=== PATIENT | male | born 1995 | race Asian ===

== ENCOUNTER 2017-03-01 09:12 | Emergency (ER) | payer OTHER ==
[~2017-03-01] VITALS: Ht 177.8 cm; Wt 89.5 kg
[2017-03-01 09:20] VITALS: TEMP 36.9; Ht 177.8 cm; Wt 89.5 kg
[2017-03-01] MEDS ORDERED: KETOROLAC TROMETHAMINE 30 MG/ML VIAL IV STA (09:52)
--- NOTE | 2017-03-01 10:58 | DIAGNOSTIC IMAGING REPORT ---
LUMBAR SPINE 2 OR 3 VIEWS HISTORY: 21 years-old Male acute lower back pain COMPARISON: None available TECHNIQUE: Frontal, lateral and coned-down lateral views of the lumbar spine. FINDINGS: There is mild convex left curvature of the lumbar spine measuring 13 degrees from L1-L4 which may be accentuated by positioning. There are 5 nonrib appearing lumbar type vertebral segments present. No acute fracture or dislocation is identified. Multiple lower thoracic segments demonstrate minimal anterior wedging of less than 20% which is likely physiologic. No significant degenerative changes are otherwise seen. Bone mineralization is within normal limits. Intervertebral disc spaces are well-maintained. Abdominal structures are unremarkable. A cellular device is seen on the lateral view. IMPRESSION: 1. No acute fracture or dislocation of the lumbar spine. 2. No significant degenerative changes. 3. Mild convex left curvature of the lumbar spine of 13 degrees may be accentuated by positioning. The above report was generated using voice recognition software. It may contain grammatical, syntax or spelling errors. Electronically signed by: Rodolfo Ash M.D. 03/01/2017 10:57 AM Dictated Date/Time: 03/01/2017 10:53 AM
[2017-03-01] MEDS ORDERED: PRED50TA PO (11:06)
[2017-03-01 11:29] VITALS: BP 140/73; PULSE 66; O2SAT 97
--- NOTE | 2017-03-01 16:03 | EMERGENCY ROOM VISIT NOTE ---
History Report prepared by Melanieibwillard: Brody Hyman Under the Supervision of: Dr. Shukri Resendez D.O. First contact with patient: 09:39 Chief Complaint: LEG PAIN,LEG INJURY Stated Complaint: LEFT LEG PAIN History of Present Illness The patient is a 21 year old male who presents to the Emergency Room with complaints of worsening left lower back pain beginning four days ago. The patient states that his pain begins in his back, and moves into his left hip down to his left galeas in the back portion of his leg. He states that he has been having some difficulty walking due to the pain. He denies any loss of bowel or bladder continence, numbness, weakness in legs, fevers, or LOC. The patient denies any IV drug use, or recent straining. He denies any prolonged sitting, and states that he has been walking a lot recently. Pain is worsened with movement of the leg and bending at the hips. Source of History: patient Onset: Four days agoo Position: back (left lower) Timing: constant Associated Symptoms: No LOC, No fevers, No weakness, No numbness Note: Additional symptoms: pain radiating into the left hip and leg, difficulty walking. He denies any loss of bowel or bladder continence. Review of Systems See HPI for pertinent positives & negatives. A total of 10 systems reviewed and were otherwise negative. Past Medical & Surgical Medical Problems: (1) No Known Active Medical Problems Family History No pertinent family history stated. Social History Smoking Status: Never Smoker Occupation Status: [employer] student Current/Historical Medications Scheduled Prednisone (Prednisone), 50 MG PO DAILY Allergies Coded Allergies: No Known Allergies (Unverified , 03/01/17) Physical Exam Vital Signs Date Time Temp Pulse Resp B/P (MAP) Pulse Ox O2 Delivery O2 Flow Rate FiO2 03/01/17 11:29 66 16 140/73 97 03/01/17 09:20 36.9 66 18 162/90 96 Room Air Physical Exam GENERAL: Sitting u pin bed, alert, well appearing, well nourished, no distress, non-toxic EYE EXAM: normal conjunctiva. OROPHARYNX: no exudate, no erythema, lips, buccal mucosa, and tongue normal and mucous membranes are moist NECK: supple, no nuchal rigidity, no adenopathy, non-tender LUNGS: Clear to auscultation. Normal chest wall mechanics HEART: no murmurs, S1 normal and S2 normal ABDOMEN: abdomen soft, non-tender, normo-active bowel sounds, no masses, no rebound or guarding. BACK: Back is symmetrical on inspection and there is no deformity. Acute tenderness from the left SI joint through the left gluteus, down the back of the left leg. SKIN: no rashes and no bruising UPPER EXTREMITIES: upper extremities are grossly normal. LOWER EXTREMITIES: Flexion and extension of the hip, knee, ankle and EHL 5/5 bilaterally. Gross sensation intact. Patellar and Achilles reflexes 2/4 bilaterally. DPs 2/4 bilaterally. Able to ambulate. NEURO EXAM: Normal sensorium, cranial nerves II-XII grossly intact, normal speech, no gross weakness of arms, no gross weakness of legs. Medical Decision & Procedures ER Provider Diagnostic Interpretation: Radiology results as stated below per my review and the radiologist's interpretation: LUMBAR SPINE 2 OR 3 VIEWS FINDINGS: There is mild convex left curvature of the lumbar spine measuring 13 degrees from L1-L4 which may be accentuated by positioning. There are 5 nonrib appearing lumbar type vertebral segments present. No acute fracture or dislocation is identified. Multiple lower thoracic segments demonstrate minimal anterior wedging of less than 20% which is likely physiologic. No significant degenerative changes are otherwise seen. Bone mineralization is within normal limits. Intervertebral disc spaces are well-maintained. Abdominal structures are unremarkable. A cellular device is seen on the lateral view. IMPRESSION: 1. No acute fracture or dislocation of the lumbar spine. 2. No significant degenerative changes. 3. Mild convex left curvature of the lumbar spine of 13 degrees may be accentuated by positioning. The above report was generated using voice recognition software. It may contain grammatical, syntax or spelling errors. Electronically signed by: Rodolfo Ash M.D. Medications Administered Medications (Trade) Dose Ordered Sig/Geoff Route Start Time Stop Time Status Last Admin Dose Admin Ketorolac Tromethamine (Toradol Inj) 30 mg NOW STAT IV 03/01/17 09:52 03/01/17 09:54 DC 03/01/17 10:14 30 MG Prednisone (PredniSONE TAB) 60 mg NOW STAT PO 03/01/17 11:03 03/01/17 11:04 DC 03/01/17 11:19 60 MG ED Course ED COURSE: Vital signs were reviewed and showed situational hypertension The patients medical record was reviewed The above diagnostic studies were performed and reviewed. ED treatments and interventions as stated above. 0945: The patient was evaluated in room C4. A complete history and physical examination was performed. 0952: Ordered Toradol Inj 30 mg IV. 1103: Ordered Prednisone Tab 60 mg PO. 1105: Upon reevaluation, the patient is resting comfortably. I discussed my findings with the patient and he understands and agrees with the treatment plan. Based on the patients age, coexisting illnesses, exam and lab findings the decision to treat as an outpatient was made. The patient remained stable while under my care. The patient appeared well at the time of discharge. Medical Decision Differential diagnoses includes but is not limited to lumbar radiculopathy, muscle strain, facture, cauda equina, mass, and disc herniation. Patient is a 21-year-old male with no risk factors that presents the ER for lower back pain radiating through his left gluteus and into his left leg. He has acute reproducible pain on palpation. No IV drug use, fevers, trauma, weakness or numbness in the leg, he is able to urinate and move his bowels without difficulty. No previous back surgeries. On exam he is completely neurovascularly intact. X-rays of spine were unremarkable. IM Toradol and steroids were given. He felt moderately better. He was discharged follow-up with PCP/[facility]. Discussed with Pt concerning signs and symptoms to watch out for. Pt was instructed to follow up with their PCP and discussed with the patient their option to return to the ED at anytime for persistent or worsening symptoms. The appropriate anticipatory guidance and out-patient management, including indications for return to the emergency department, were explained at length to the patient and understood. Medication Reconcilliation Current Medication List: was personally reviewed by me Blood Pressure Screening Patient's blood pressure: Elevated blood pressure Blood pressure disposition: Elevated BP felt to be situational Impression Primary Impression: Sciatic leg pain Scribe Attestation The scribe's documentation has been prepared under my direction and personally reviewed by me in its entirety. I confirm that the note above accurately reflects all work, treatment, procedures, and medical decision making performed by me. Departure Information Dispostion Home / Self-Care Prescriptions Prednisone (PREDNISONE) 50 Mg Tab 50 MG PO DAILY for 5 Days, #5 TAB Prov: Shukri Resendez, DO 03/01/17 Referrals No Doctor, Assigned (PCP) Forms HOME CARE DOCUMENTATION FORM, IMPORTANT VISIT INFORMATION Patient Instructions ED Sciatica, My [facility] Additional Instructions Please follow up with your primary care doctor/[facility] within 24 hours. Any worsening of your symptoms, please return to the ED immediately. This includes any fevers greater than 100.4, worsening pain, numbness or weakness in the legs , and ability to ambulate, inability to urinate or move your bowels or any other concerning signs or symptoms from your standpoint. Please take Motrin or Tylenol as needed for pain.
== END 2017-03-01 11:31 | disposition home or self-care (01) ==
LOC: C.EDB 09:14 → C.EDC 11:31
DX: M54.42 Lumbago with sciatica, left side (principal)

== ENCOUNTER 2017-03-08 10:20 | Emergency (ER) | payer OTHER ==
[~2017-03-08] VITALS: Ht 177.8 cm; Wt 87.9 kg
[2017-03-08 10:26] VITALS: Ht 177.8 cm; Wt 87.9 kg
[2017-03-08] MEDS ORDERED: PRED50TA PO ×2 (11:02→13:28)
[2017-03-08] MEDS ORDERED: ACETAMINOPHEN 500 MG TAB PO STA (11:33)
[2017-03-08] MEDS ORDERED: KETOROLAC TROMETHAMINE 30 MG/ML VIAL IV STA (11:33)
[2017-03-08] MEDS ORDERED: TRAMADOL HCL 50 MG TAB PO STA (11:33)
[2017-03-08] MEDS ORDERED: DEXAMETHASONE SOD INJ 10 MG/ML VIAL IV ONE (11:45)
[2017-03-08] MEDS ORDERED: SODIUM CHLORIDE 0.9% 1000ML 1,000 ML IV SCH (11:45)
--- NOTE | 2017-03-08 12:01 | EMERGENCY ROOM VISIT NOTE ---
History Report prepared by Librado: Emily Thomas Under the Supervision of: Dr. Dylan Shepherd M.D. First contact with patient: 10:50 Chief Complaint: BACK PAIN Stated Complaint: SCIATICA History of Present Illness The patient is a 21 year old male with a past medical history of back pain who presents to the ED with a cc of back pain for the past week and a half. His pain is worse in his left lower back and radiates down his left leg. He describes his pain as "stabbing" and rates it as a 9/10 in severity. The patient was seen in the ED 1 week ago for these symptoms. He was diagnosed with sciatica and discharged home with a prescription for prednisone. He has been taking this medication as prescribed, but states that it is not helping his pain. His pain has been constant. Movement exacerbates his pain, as well as laying on his back. Laying on his stomach is the most comfortable position. Negative fevers, chills, nausea, vomiting, urinary symptoms, penial discharge, incontinence, numbness, tingling, recent weight loss, and recent trauma or injury. He traveled to the from [place] 3 weeks ago and denies any other recent travel. Source of History: patient Onset: 1.5 weeks ago Position: back (lower) Symptom Intensity: 9/10 Quality: stabbing Timing: worsening Modifying Factors (Worsening): movement, other (laying on back) Modifying Factors (Relieving): other (laying on stomach) Associated Symptoms: No fevers, No chills, No nausea, No vomiting, No urinary symptoms, No numbness Note: Negative penial discharge, incontinence, tingling, recent weight loss, and recent trauma or injury. Review of Systems See HPI for pertinent positives and negatives. A total of ten systems were reviewed and were otherwise negative. Past Medical & Surgical Medical Problems: (1) No significant medical problems Family History Patient reports no known family medical history. Social History Smoking Status: Never Smoker Smokeless Tobacco Use: No Alcohol Use: none Drug Use: none Marital Status: single Housing Status: lives with roommate Occupation Status: [employer] student Current/Historical Medications Scheduled Prednisone (Prednisone), 50 MG PO DAILY Prednisone (Prednisone), 50 MG PO DAILY Scheduled PRN Tramadol (Ultram), 50 MG PO Q8H PRN for Pain Allergies Coded Allergies: No Known Allergies (Unverified , 03/08/17) Physical Exam Vital Signs Date Time Temp Pulse Resp B/P (MAP) Pulse Ox O2 Delivery O2 Flow Rate FiO2 03/08/17 14:15 36.6 63 18 131/74 96 03/08/17 13:22 67 18 145/77 97 Room Air 03/08/17 10:26 36.6 79 16 156/103 94 Room Air Physical Exam GENERAL: Awake, alert, well-appearing, NAD HENT: Normocephalic, atraumatic. EYES: Normal conjunctiva. Sclera non-icteric. NECK: Supple. No nuchal rigidity. FROM. RESPIRATORY: CTAB, no rhonchi, wheezing, crackles CARDIAC: RRR, no MRG ABDOMEN: Soft, NTND, BS+ BACK: Reproducible left-sided lower back pain, no fluctuance. MSK: No chest wall TTP, no LE edema. NEURO: GCS 15, CN 2-12 intact, moves all 4s on command. Mildly decreased strength of LLE secondary to pain, no sensory deficit. Positive straight leg raise on the left. SKIN: No rash or jaundice noted. Medical Decision & Procedures ER Provider Diagnostic Interpretation: Radiology results as stated below per my review and radiologist interpretation: LUMBAR SPINE 2 OR 3 VIEWS HISTORY: 21 years-old Male L sided LBP, likely sciatica, repeat visit COMPARISON: Lumbar spine radiographs 03/01/2017 TECHNIQUE: 3 views of the lumbar spine FINDINGS: Approximately 10 degrees convex left curvature of the lumbar spine is seen measured from T12-L4. No acute fracture, dislocation or significant degenerative changes. Minimal anterior wedging of less than 20% seen within several lower thoracic segments, likely physiologic. Bone mineralization is within normal limits. Imaged soft tissues and abdominal structures are unremarkable. IMPRESSION: 1. No acute bony abnormality. 2. Gentle convex left curvature of the lumbar spine redemonstrated. The above report was generated using voice recognition software. It may contain grammatical, syntax or spelling errors. Electronically signed by: Rodolfo Ash M.D. 03/08/2017 12:16 PM Dictated Date/Time: 03/08/2017 12:14 PM Laboratory Results 03/08/17 11:35 Red Blood Count 5.81, Mean Corpuscular Volume 85.0, Mean Corpuscular Hemoglobin 28.7, Mean Corpuscular Hemoglobin Concent 33.8, Mean Platelet Volume 11.1, Neutrophils (%) (Auto) 87.8, Lymphocytes (%) (Auto) 8.7, Monocytes (%) (Auto) 2.4, Eosinophils (%) (Auto) 0.7, Basophils (%) (Auto) 0.1, Neutrophils # (Auto) 11.64, Lymphocytes # (Auto) 1.15, Monocytes # (Auto) 0.32, Eosinophils # (Auto) 0.09, Basophils # (Auto) 0.01 03/08/17 11:35 Test 03/08/17 11:35 White Blood Count 13.25 K/uL (4.8-10.8) Red Blood Count 5.81 M/uL (4.7-6.1) Hemoglobin 16.7 g/dL (14.0-18.0) Hematocrit 49.4 % (42-52) Mean Corpuscular Volume 85.0 fL (80-100) Mean Corpuscular Hemoglobin 28.7 pg (25-34) Mean Corpuscular Hemoglobin Concent 33.8 g/dl (32-36) Platelet Count 286 K/uL (130-400) Mean Platelet Volume 11.1 fL (7.4-10.4) Neutrophils (%) (Auto) 87.8 % Lymphocytes (%) (Auto) 8.7 % Monocytes (%) (Auto) 2.4 % Eosinophils (%) (Auto) 0.7 % Basophils (%) (Auto) 0.1 % Neutrophils # (Auto) 11.64 K/uL (1.4-6.5) Lymphocytes # (Auto) 1.15 K/uL (1.2-3.4) Monocytes # (Auto) 0.32 K/uL (0.11-0.59) Eosinophils # (Auto) 0.09 K/uL (0-0.5) Basophils # (Auto) 0.01 K/uL (0-0.2) RDW Standard Deviation 40.9 fL (36.4-46.3) RDW Coefficient of Variation 13.3 % (11.5-14.5) Immature Granulocyte % (Auto) 0.3 % Immature Granulocyte # (Auto) 0.04 K/uL (0.00-0.02) Anion Gap 9.0 mmol/L (3-11) Est Creatinine Clear Calc Drug Dose 158.0 ml/min Estimated GFR () 147.1 Estimated GFR (Non- 126.9 BUN/Creatinine Ratio 14.4 (10-20) Calcium Level 9.2 mg/dl (8.5-10.1) Laboratory results reviewed by me. Medications Administered Medications (Trade) Dose Ordered Sig/Geoff Route Start Time Stop Time Status Last Admin Dose Admin Sodium Chloride 1,000 ml @ 999 mls/hr Q1H1M IV 03/08/17 11:45 03/08/17 14:28 DC 03/08/17 11:45 999 MLS/HR Dexamethasone Sodium Phosphate (Decadron Inj) 10 mg NOW ONCE IV 03/08/17 11:45 03/08/17 11:46 DC 03/08/17 11:54 10 MG Ketorolac Tromethamine (Toradol Inj) 30 mg NOW STAT IV 03/08/17 11:33 03/08/17 11:36 DC 03/08/17 11:54 30 MG Tramadol HCl (Ultram Tab) 50 mg NOW STAT PO 03/08/17 11:33 03/08/17 11:36 DC 03/08/17 11:55 50 MG Acetaminophen (Tylenol Tab) 1,000 mg NOW STAT PO 03/08/17 11:33 03/08/17 11:36 DC 03/08/17 11:54 1,000 MG ED Course 1059: The patient was evaluated in room C8. A complete history and physical exam was performed. 1133: Tylenol tab 1000 mg PO, Ultram tab 50 mg PO, Toradol 30 mg IV 1145: Decadron 10 mg IV, NSS 1000 ml @ 999 mls/hr IV 1308: I reassessed the patient at this time. He is feeling better and resting comfortably. I discussed the results and treatment plan with the patient. I answered all pertaining questions that he had. He expressed understanding and verbalized agreement. The patient will be discharged home and will follow up with S. Medical Decision Differential diagnosis: Etiologies such as musculoskeletal, disc herniation, fracture, aortic disease, metastatic disease, cord compression, discitis, infection, renal colic, gastrointestinal, acute exacerbation of chronic back pain, sciatica, cauda equina, as well as others were entertained. The patient is a 21 year old male with a past medical history of back pain who presents to the ED with a cc of back pain for the past week and a half. Patient was seen and evaluated at the bedside. Patient's exam was most consistent with sciatica patient did not have any high risk low back pain features as patient denied fever, unexplained weight loss, IV drug abuse, drug use, bowel or bladder incontinence or retention, or saddle anesthesia. Patient does not complain of any urinary symptoms so a UA was not obtained. Patient's pain improved after medical management. I discussed with the patient the need to follow-up with his primary care physician which can then refer him to either physical therapy and or an orthopedist for further management if conservative treatment does not help him. Patient was told to return if he had worsening symptoms include numbness, tingling, weakness, bowel or bladder incontinence, or saddle anesthesia. Patient was given prescriptions for home. Patient agreed with plan of care and patient was safely discharged home. Medication Reconcilliation Current Medication List: was personally reviewed by me Blood Pressure Screening Patient's blood pressure: Elevated blood pressure Blood pressure disposition: Elevated BP felt to be situational Impression Primary Impression: Sciatica Additional Impression: Back pain Scribe Attestation The scribe's documentation has been prepared under my direction and personally reviewed by me in its entirety. I confirm that the note above accurately reflects all work, treatment, procedures, and medical decision making performed by me. Departure Information Dispostion Home / Self-Care Prescriptions Tramadol (Ultram) 50 Mg Tab 50 MG PO Q8H Y for Pain, #10 TAB Prov: Dylan Shepherd M.D. 03/08/17 Prednisone (Prednisone) 50 Mg Tab 50 MG PO DAILY for 5 Days, #5 TAB Prov: Dylan Shepherd M.D. 03/08/17 Referrals No Doctor, Assigned (PCP) [facility] Patient Instructions ED Sciatica, Exercises Back Hip Lift, Exercises Back Hip Rotator Stretch, Exercises Back Side Stretch, Exercises Lower Back Rotation, My [facility] Additional Instructions Please return to the emergency department if you have worsening or recurrent symptoms not amenable to at-home treatment. Please call for a follow-up appointment with her primary care physician. Please take your medications as prescribed. If you have other concerns and/or complaints please feel free to also call your primary care physician's office or return the ED for further evaluation, management, and treatment. Please follow-up with [facility] in order to obtain a further appointment with [facility]. Please also follow up with [facility] in order to obtain physical therapy appointment. Please continue to do back exercises and stretches. Please take 800 mg of ibuprofen every 6 hours for the next 2 days. Please take with food. Please take Tylenol 1000 mg every 6 hours. He may take tramadol for breakthrough pain not amenable to Motrin or Tylenol. Please take her prescriptions as prescribed. Please take prednisone with food as this may cause upset stomach. Please return if you have any numbness or weakness of the lower extremity or if you have any bowel or bladder incontinence or numbness to the groin area. School Instructions Return To School: 1 day Problem Qualifiers Primary Impression: Sciatica Laterality: left Qualified Codes: M54.32 - Sciatica, left side Additional Impression: Back pain Back pain location: low back pain Chronicity: chronic Back pain laterality : left Sciatica presence: with sciatica Sciatica laterality: sciatica of left side Qualified Codes: M54.42 - Lumbago with sciatica, left side; G89.29 - Other chronic pain
[2017-03-08 12:03] LABS: BASO % 0.1 %; BASO ABS # 0.01 K/uL (0-0.2); COMPLETE YES; EOS % 0.7 %; HEMATOCRIT 49.4 % (42-52); IG% 0.3 %; LYMPH % 8.7 %; LYMPH ABS # 1.15 K/uL (1.2-3.4); MEAN CORPUSCULAR HEMOGLOBIN 28.7 pg (25-34); MEAN CORPUSCULAR HGB CONC 33.8 g/dl (32-36); MEAN PLATELET VOLUME 11.1 fL (7.4-10.4); MONO % 2.4 %; NEUT % 87.8 %; PLATELET COUNT 286 K/uL (130-400); RED BLOOD COUNT 5.81 M/uL (4.7-6.1); WHITE BLOOD COUNT 13.25 K/uL (4.8-10.8)
--- NOTE | 2017-03-08 12:18 | DIAGNOSTIC IMAGING REPORT ---
LUMBAR SPINE 2 OR 3 VIEWS HISTORY: 21 years-old Male L sided LBP, likely sciatica, repeat visit COMPARISON: Lumbar spine radiographs 03/01/2017 TECHNIQUE: 3 views of the lumbar spine FINDINGS: Approximately 10 degrees convex left curvature of the lumbar spine is seen measured from T12-L4. No acute fracture, dislocation or significant degenerative changes. Minimal anterior wedging of less than 20% seen within several lower thoracic segments, likely physiologic. Bone mineralization is within normal limits. Imaged soft tissues and abdominal structures are unremarkable. IMPRESSION: 1. No acute bony abnormality. 2. Gentle convex left curvature of the lumbar spine redemonstrated. The above report was generated using voice recognition software. It may contain grammatical, syntax or spelling errors. Electronically signed by: Rodolfo Ash M.D. 03/08/2017 12:16 PM Dictated Date/Time: 03/08/2017 12:14 PM
[2017-03-08 12:28] LABS: BUN/CREATININE RATIO 14.4 (10-20); CALCIUM 9.2 mg/dl (8.5-10.1); CREATININE 0.84 mg/dl (0.60-1.40); POTASSIUM 3.9 mmol/L (3.5-5.1)
[2017-03-08] MEDS ORDERED: TRAM-10 PO (13:28)
[2017-03-08 14:15] VITALS: BP 131/74; PULSE 63; TEMP 36.6; O2SAT 96
== END 2017-03-08 14:18 | disposition home or self-care (01) ==
LOC: C.EDB 10:21 → C.EDC 14:18
DX: M53.3 Sacrococcygeal disorders, not elsewhere classified (principal); M54.9 Dorsalgia, unspecified

== ENCOUNTER 2017-03-15 10:44 | Emergency (ER) | payer OTHER ==
[~2017-03-15] VITALS: Ht 177.8 cm; Wt 88.0 kg
[~2017-03-15 10:44] MED LIST: PRED50TA PO; TRAM-10 PO
[2017-03-15 10:50] VITALS: TEMP 36.9; Ht 177.8 cm; Wt 88.0 kg
[2017-03-15] MEDS ORDERED: TRAM-10 PO (11:14)
[2017-03-15 11:34] VITALS: BP 148/99; PULSE 85; O2SAT 97
--- NOTE | 2017-03-15 20:43 | EMERGENCY ROOM VISIT NOTE ---
History First contact with patient: 11:06 Chief Complaint: BACK PAIN Stated Complaint: SCIATICA History of Present Illness The patient is a 21 year old male who presents to the Emergency Room with complaints of persistent lower back pain radiating down the left lower extremity to the calf. The patient reports that this is his third visit for this pain. The patient reports that his pain did improve since his last visit. Upon awakening this morning, he reported that the pain was back. The patient denies any acute injuries over the weekend. He denies any left lower extremity weakness, foot drop, saddle anesthesias or bladder/bowel difficulties/ incontinence. The patient denies any prior history of lower back injuries or sciatica. He reports that the Ultram he took the last time did help with his pain. He currently rates his discomfort an 8 out of 10. Review of Systems 10 system review was performed and was negative except for pertinent positives and negatives as indicated in history of present illness Past Medical/Surgical History Medical Problems: (1) No significant medical problems Family History Patient reports no known family medical history. Social History Smoking Status: Current Every Day Smoker Alcohol Use: none Drug Use: none Marital Status: single Housing Status: lives with roommate Occupation Status: [employer] student Current/Historical Medications Scheduled Prednisone (Prednisone), 50 MG PO DAILY Scheduled PRN Tramadol (Ultram), 50 MG PO Q8H PRN for Pain Tramadol (Ultram), 1-2 TAB PO Q4H PRN for Pain Physical Exam Vital Signs Date Time Temp Pulse Resp B/P (MAP) Pulse Ox O2 Delivery O2 Flow Rate FiO2 03/15/17 11:34 85 148/99 97 03/15/17 10:50 36.9 94 16 143/96 93 Room Air Physical Exam CONSTITUTIONAL: Healthy and well nourished. Alert and oriented X 3 with positive affect. Patient does not appear in any acute distress. HEENT: Normocephalic, atraumatic. Pupils equal, round and reactive. NECK: Full active range of motion without discomfort. MUSCULOSKELETAL: Examination shows generalized tenderness to palpation through the left lower lumbar paraspinous muscle, SI joint and sciatic notch. Negative logroll. Positive sitting straight leg raise, reproducing pain into the left calf. No popliteal masses, and pedal pulses are intact. Ankle plantar/ dorsiflexion strength is 5 out of 5 and symmetric bilaterally. INTEGUMENTARY: No rash or other significant dermatologic conditions noted. NEUROLOGIC: No focal neurologic deficits noted. Lower extremity deep tendon reflexes are 2+ and symmetric bilaterally. Medical Decision & Procedures ED Course Patient history and physical exam were performed. Nurse's notes were reviewed. Vital signs were reviewed, showing an elevated blood pressure of 143/96. The patient does not appear in any acute distress. I did review his prior to ED visit notes. On his last ED evaluation, he did have x-rays and laboratory studies performed that were normal. Review of his discharge instructions instructed him to contact [facility] for [facility] referral. The patient reports that he did not contact [facility] because his pain was improving. At this point, the patient was provided direct contact information for [facility]. He was instructed to contact them to see if they accept his insurance without a referral. If they do require a referral, the patient was instructed to follow- up with [facility] for further management and referral as warranted. The patient was advised that the emergency department does not provide ongoing chronic pain management, and that further treatment including possible physical therapy and MRI studies, would need to be ordered by his primary care provider. The patient was given specific symptoms to watch for that would warrant emergency Department reevaluation, symptoms consistent with cauda equina syndrome and other emergent compressive neuropathy. The patient was encouraged to alternate ibuprofen and Tylenol for baseline pain relief. He was provided another prescription for tramadol as needed for breakthrough pain. The [place] Prescription Drug Monitoring Program was reviewed with no prior controlled medication history of concern. The patient voiced understanding of all discharge instructions, was happy with plan of care, refused any analgesics while in the emergency department, and rated his pain a 5 out of 10 at the conclusion of my exam. The patient's blood pressure was also elevated in the emergency department. He was instructed to follow-up with [facility] for separate recheck of his blood pressure if he goes directly to [facility]. Medical Decision As indicated in the previous section, the patient does not have any clinical exam findings to suggest an emergent compressive neuropathy. Given history, I also do not suspect a spinal abscess or hematoma. His prior laboratory studies do not show any leukocytosis or other concerning laboratory findings. The patient is afebrile. [place] Drug Monitoring Program Search Results: patient reviewed within database, no issues identified Medication Reconcilliation Current Medication List: was personally reviewed by me Blood Pressure Screening Patient's blood pressure: Elevated blood pressure Blood pressure disposition: Referred to PCP Impression Primary Impression: Back pain with left-sided sciatica Additional Impression: Elevated blood pressure reading Departure Information Dispostion Home / Self-Care Prescriptions Tramadol (Ultram) 50 Mg Tab 1-2 TAB PO Q4H Y for Pain, #30 TAB For Initial Treatment Prov: Germán Mills PA 03/15/17 Referrals Javier Tompkins M.D. [facility] (PCP) Forms HOME CARE DOCUMENTATION FORM, IMPORTANT VISIT INFORMATION Patient Instructions My [facility], ED Sciatica Additional Instructions Call [facility] (Dr. Tompkins) to see if they accept your insurance without a referral. If they require a referral, follow-up with [facility] for this referral or for further back pain management. Ibuprofen 800 mg and/or Tylenol 1000 mg every 8 hours. You may also alternate these medications for more effective pain relief: Ibuprofen --4 HRS--> Tylenol --4 HRS--> ibuprofen --4 HRS--> Tylenol .... Ultram if needed for worse pain. Problem Qualifiers
== END 2017-03-15 11:36 | disposition home or self-care (01) ==
LOC: C.EDB 10:45 → C.EDD 11:36
DX: M54.42 Lumbago with sciatica, left side (principal); R03.0 Elevated blood-pressure reading, without diagnosis of hypertension; F17.210 Nicotine dependence, cigarettes, uncomplicated

== ENCOUNTER 2017-04-25 10:39 | Observation (INO) | payer OTHER ==
[~2017-04-25] VITALS: Ht 175.3 cm; Wt 86.5 kg
[2017-04-25] MEDS ORDERED: KETOROLAC TROMETHAMINE 30 MG/ML VIAL IV STA (11:16)
[2017-04-25] MEDS ORDERED: SODIUM CHLORIDE 0.9% 1000ML 1,000 ML IV ONE (11:30)
[2017-04-25] MEDS ORDERED: DEXAMETHASONE SOD INJ 10 MG/ML VIAL IV ONE (11:30)
[2017-04-25] MEDS ORDERED: MoRPHine SULFATE 4 MG/ML 1 ML CARP\\VIAL IV ONE ×2 (11:30→14:45)
[2017-04-25] MEDS ORDERED: LORAZEPAM 2 MG/ML 1 ML VIAL IV ONE (11:30)
[2017-04-25 11:45] LABS: BASO % 0.2 %; BASO ABS # 0.03 K/uL (0-0.2); COMPLETE YES; EOS % 0.9 %; HEMATOCRIT 44.6 % (42-52); IG% 0.3 %; LYMPH % 10.5 %; LYMPH ABS # 1.47 K/uL (1.2-3.4); MEAN CELL VOLUME 83.4 fL (80-100); MEAN CORPUSCULAR HEMOGLOBIN 29.2 pg (25-34); MEAN PLATELET VOLUME 10.9 fL (7.4-10.4); MONO % 4.6 %; NEUT % 83.5 %; PLATELET COUNT 266 K/uL (130-400); RED BLOOD COUNT 5.35 M/uL (4.7-6.1)
[2017-04-25 11:55] LABS: ALT/SGPT 31 U/L (12-78); AST/SGOT 18 U/L (15-37); BLOOD UREA NITROGEN 12 mg/dl (7-18); BUN/CREATININE RATIO 17.1 (10-20); CARBON DIOXIDE 23 mmol/L (21-32); CHLORIDE 104 mmol/L (98-107); CREATININE 0.71 mg/dl (0.60-1.40); GLUCOSE 98 mg/dl (70-99); POTASSIUM 3.5 mmol/L (3.5-5.1); SODIUM 137 mmol/L (136-145)
[2017-04-25 11:57] LABS: ALB/GLOB RATIO 1.3 (0.9-2); ALKALINE PHOSPHATASE 60 U/L (45-117)
--- NOTE | 2017-04-25 13:45 | DIAGNOSTIC IMAGING REPORT ---
MRI OF THE LUMBAR SPINE WITHOUT CONTRAST CLINICAL HISTORY: Low back pain with left sciatica. COMPARISON STUDY: No previous studies for comparison. TECHNIQUE: Utilizing a 1.5 Ananya magnet and dedicated coil, multiplanar, multiecho imaging of the lumbar spine was performed without IV contrast. FINDINGS: For purposes of numbering on this exam, the L5-S1 disc space is assigned to axial image 24 of 27. Alignment of the lumbar spine is anatomic. Vertebral body heights are maintained. The conus terminates at the T12-L1 level. Paravertebral soft tissues are unremarkable. L1-2: The central canal and neural foramen are patent. L2-3: The central canal and neural foramen are patent. L3-4: The central canal and neural foramen are patent. L4-5: There is a large left paracentral disc extrusion that results in marked narrowing of the central canal and left lateral recess. The neural foramen are patent. L5-S1: There is a moderate-sized central/left paracentral disc protrusion that results in mild narrowing of the central canal and moderate narrowing of the left lateral recess. Neural foramen are patent. IMPRESSION: 1. Large left paracentral disc extrusion at L4-L5 that results in marked narrowing of the central canal and left lateral recess. Discussed with [place] at time of dictation. 2. Moderate sized central/left paracentral disc protrusion at L5-S1 that results in moderate narrowing of the left lateral recess and mild narrowing of the central canal. Electronically signed by: Shashank Lyons M.D. 04/25/2017 1:44 PM Dictated Date/Time: 04/25/2017 1:15 PM
--- NOTE | 2017-04-25 15:50 | History and Physical ---
History & Physical Date & Time of Service: Apr 25, 2017 at 15:46 Chief Complaint: Back Pain Primary Care Physician: [facility] History of Present Illness Source: patient This is a 21 yo M without significant past medical history who reports to the ER with acute worsening of left lower back pain with radiculopathy down into the left left extending to his foot. He reports the inciting event happened about 1 month ago when he was exercising, but the pain was only limited, so he treated it conservatively. The pain has worsened in the past 2-3 weeks where he has required physical therapy once weekly, and has been taking tylenol, ibuprophen and tramadol for pain relief. On Tuesday night his pain was acutely worse, however the [facility] was closed over the weekend. Today he notes the radiculopathy is at its worst and extends into the dorsal aspect of his foot, he is weaker in his left leg compared to the right as well. He is unable to sit due to pain. The patient reports no issues with bowel or bladder incontinence. Last time he ate was last evening. Pt also notes that his parents would like to see the MRI, and he anticipates getting surgery in [place] if possible. Past Medical/Surgical History Medical Problems: (1) No significant medical problems Status: Chronic Surgical Hx: [place] teeth removal (2) Family History Patient reports no known family medical history. Social History Smoking Status: Former Smoker Smokeless Tobacco Use: No Alcohol Use: none Marital Status: single Housing status: lives with roommate Occupational Status: [employer] student Allergies Coded Allergies: No Known Allergies (Unverified , 04/25/17) Review of Systems Constitutional: No fever, No chills, No sweats Eyes: No worsening of vision, No diplopia ENT: No sore throat, No trouble swallowing Respiratory: No cough, No shortness of breath Cardiovascular: No chest pain, No edema Abdomen: No pain, No nausea, No vomiting, No diarrhea, No constipation Musculoskeletal: + problem reported (Left sided leg weakness), No joint pain, No swelling Genitourinary - Male: No dysuria Neurologic: + paralysis, + numbness/tingling, No balance problems Integumentary: No rash, No itch Physical Exam Vital Signs Date Time Temp Pulse Resp B/P (MAP) Pulse Ox O2 Delivery O2 Flow Rate FiO2 04/25/17 14:35 112 20 117/90 99 Room Air 04/25/17 12:47 100 20 156/90 98 Room Air 04/25/17 11:43 109 20 162/102 99 Room Air 04/25/17 10:53 36.7 81 18 148/101 99 Room Air General Appearance: WD/WN, + moderate distress Head: normocephalic, atraumatic Eyes: PERRL, EOMI ENT: hearing grossly normal, pharynx normal Neck: supple, no JVD Respiratory/Chest: lungs clear, no respiratory distress, no accessory muscle use Cardiovascular: regular rate, rhythm, no murmur, normal peripheral pulses, + tachycardia Abdomen/GI: normal bowel sounds, non tender, soft Back: normal inspection, + pertinent finding (Tenderness with palpation on left side in lumbar region) Extremities/Musculoskelatal: normal inspection, no calf tenderness, no pedal edema Neurologic/Psych: alert, normal reflexes, oriented x 3, + pertinent finding ( LLE weakness 4/5, RLE strength 5/5. Sensation to light touch in tact. ) Skin: normal color, warm/dry Diagnostics Laboratory Results Results Past 24 Hours Test 04/25/17 11:25 Range/Units White Blood Count 14.00 4.8-10.8 K/uL Red Blood Count 5.35 4.7-6.1 M/uL Hemoglobin 15.6 14.0-18.0 g/dL Hematocrit 44.6 42-52 % Mean Corpuscular Volume 83.4 80-100 fL Mean Corpuscular Hemoglobin 29.2 25-34 pg Mean Corpuscular Hemoglobin Concent 35.0 32-36 g/dl Platelet Count 266 130-400 K/uL Mean Platelet Volume 10.9 7.4-10.4 fL Neutrophils (%) (Auto) 83.5 % Lymphocytes (%) (Auto) 10.5 % Monocytes (%) (Auto) 4.6 % Eosinophils (%) (Auto) 0.9 % Basophils (%) (Auto) 0.2 % Neutrophils # (Auto) 11.68 1.4-6.5 K/uL Lymphocytes # (Auto) 1.47 1.2-3.4 K/uL Monocytes # (Auto) 0.65 0.11-0.59 K/uL Eosinophils # (Auto) 0.13 0-0.5 K/uL Basophils # (Auto) 0.03 0-0.2 K/uL RDW Standard Deviation 39.2 36.4-46.3 fL RDW Coefficient of Variation 13.2 11.5-14.5 % Immature Granulocyte % (Auto) 0.3 % Immature Granulocyte # (Auto) 0.04 0.00-0.02 K/uL Sodium Level 137 136-145 mmol/L Potassium Level 3.5 3.5-5.1 mmol/L Chloride Level 104 98-107 mmol/L Carbon Dioxide Level 23 21-32 mmol/L Anion Gap 10.0 3-11 mmol/L Blood Urea Nitrogen 12 7-18 mg/dl Creatinine 0.71 0.60-1.40 mg/dl Est Creatinine Clear Calc Drug Dose 182.4 ml/min Estimated GFR () > 150.0 Estimated GFR (Non- 136.0 BUN/Creatinine Ratio 17.1 10-20 Random Glucose 98 70-99 mg/dl Calcium Level 9.0 8.5-10.1 mg/dl Total Bilirubin 2.2 0.2-1 mg/dl Aspartate Amino Transf (AST/SGOT) 18 15-37 U/L Alanine Aminotransferase (ALT/SGPT) 31 12-78 U/L Alkaline Phosphatase 60 45-117 U/L Total Protein 8.2 6.4-8.2 gm/dl Albumin 4.7 3.4-5.0 gm/dl Globulin 3.5 2.5-4.0 gm/dl Albumin/Globulin Ratio 1.3 0.9-2 Diagnostic Radiology MRI OF THE LUMBAR SPINE WITHOUT CONTRAST CLINICAL HISTORY: Low back pain with left sciatica. COMPARISON STUDY: No previous studies for comparison. TECHNIQUE: Utilizing a 1.5 Ananya magnet and dedicated coil, multiplanar, multiecho imaging of the lumbar spine was performed without IV contrast. FINDINGS: For purposes of numbering on this exam, the L5-S1 disc space is assigned to axial image 24 of 27. Alignment of the lumbar spine is anatomic. Vertebral body heights are maintained. The conus terminates at the T12-L1 level. Paravertebral soft tissues are unremarkable. L1-2: The central canal and neural foramen are patent. L2-3: The central canal and neural foramen are patent. L3-4: The central canal and neural foramen are patent. L4-5: There is a large left paracentral disc extrusion that results in marked narrowing of the central canal and left lateral recess. The neural foramen are patent. L5-S1: There is a moderate-sized central/left paracentral disc protrusion that results in mild narrowing of the central canal and moderate narrowing of the left lateral recess. Neural foramen are patent. IMPRESSION: 1. Large left paracentral disc extrusion at L4-L5 that results in marked narrowing of the central canal and left lateral recess. Discussed with [place] at time of dictation. 2. Moderate sized central/left paracentral disc protrusion at L5-S1 that results in moderate narrowing of the left lateral recess and mild narrowing of the central canal. Impression Assessment and Plan 21 yo M without significant PMHx presenting with acute onset worsening lower back pain. Back Pain - MRI spine completed 1. Large left paracentral disc extrusion at L4-L5 that results in marked narrowing of the central canal and left lateral recess. 2. Moderate sized central/left paracentral disc protrusion at L5-S1 that results in moderate narrowing of the left lateral recess and mild narrowing of the central canal. - Ortho surg consulted - pt would like to consider surgery in [place] - Pain control with dexamethasone 10 mg IV q8h, acetaminophen, tramadol and dilaudid prn - Allow diet now and make NPO after 2400 - PT/OT evals, - pt has been following with outpatient once weekly - Ambulation as tolerated with assistance - If no plans for surgical procedure will consult pain management Tachycardia - Pain induced, monitor for now - likely will resolve with analgesia on board DVT ppx: Teds, scds, no chemical anticoagulation in case of surgical procedure CODE STATUS: FULL CODE Disposition: [employer] student Level of Care Med/Surg Advanced Directives Existing Advance Directive: No Existing Living Will: No Existing Power of Mutuel Clerk: No Existing Health Care Proxy: No Resuscitation Status FULL RESUSCITATION VTE Prophylaxis VTE Risk Assessment Done? Y/N: Yes Risk Level: Very Low Given or contraindicated: T.E.D. Stockings, SCD's
[2017-04-25] MEDS ORDERED: TRAMADOL HCL 50 MG TAB PO PRN (16:15)
[2017-04-25] MEDS ORDERED: IV FLUIDS COMPLETED PRN (16:30)
[2017-04-25 16:38] VITALS: BP 117/90; PULSE 112; TEMP 36.7; O2SAT 99; Ht 175.3 cm; Wt 86.5 kg
[2017-04-25 16:49] VITALS: O2SAT 96
[2017-04-25 16:50] VITALS: BP 136/90; PULSE 104; O2SAT 94
[2017-04-25] MEDS: HYDROmorphone INJ 1 MG/ML SYR IV PRN (17:52)
[2017-04-25] MEDS: DEXAMETHASONE INJ 10 MG in SYRINGE 0 ML IV SCH (19:58)
[2017-04-25] MEDS: ACETAMINOPHEN 500 MG TAB PO SCH (21:47)
[2017-04-25 23:32] VITALS: BP 148/97; PULSE 105; TEMP 36.9; O2SAT 96
[2017-04-26] MEDS: DEXAMETHASONE INJ 10 MG in SYRINGE 0 ML IV SCH ×2 (04:30→11:29)
[2017-04-26] MEDS: ACETAMINOPHEN 500 MG TAB PO SCH (05:53)
[2017-04-26] MEDS: HYDROmorphone INJ 1 MG/ML SYR IV PRN ×2 (05:54→11:29)
[2017-04-26 06:35] LABS: COMPLETE YES; HEMATOCRIT 40.5 % (42-52); IG% 0.3 %; LYMPH % 8.8 %; LYMPH ABS # 0.94 K/uL (1.2-3.4); MEAN CELL VOLUME 83.5 fL (80-100); MEAN CORPUSCULAR HEMOGLOBIN 29.3 pg (25-34); MEAN CORPUSCULAR HGB CONC 35.1 g/dl (32-36); MEAN PLATELET VOLUME 10.5 fL (7.4-10.4); MONO % 2.4 %; NEUT % 88.5 %; PLATELET COUNT 269 K/uL (130-400); RED BLOOD COUNT 4.85 M/uL (4.7-6.1); WHITE BLOOD COUNT 10.63 K/uL (4.8-10.8)
[2017-04-26 07:13] LABS: BLOOD UREA NITROGEN 14 mg/dl (7-18); BUN/CREATININE RATIO 21.7 (10-20); CALCIUM 9.5 mg/dl (8.5-10.1); CARBON DIOXIDE 22 mmol/L (21-32); CHLORIDE 104 mmol/L (98-107); CREATININE 0.66 mg/dl (0.60-1.40); GLUCOSE 126 mg/dl (70-99); SODIUM 139 mmol/L (136-145)
--- NOTE | 2017-04-26 07:16 | EMERGENCY ROOM VISIT NOTE ---
History First contact with patient: 10:58 Chief Complaint: BACK PAIN Stated Complaint: LOW BACK PAIN History of Present Illness The patient is a 21 year old male who presents to the Emergency Room with complaints of severe low back pain radiating down his left leg that has worsened over the past one to 2 hours. The patient is a [employer] student from [employer] and has had back pain for the past several weeks. He has been seen 3 previous times in this department with essentially normal x-rays and blood work. The patient went to physical therapy today and was performing range of motion exercises when he had significant exacerbation of his pain. He rates the discomfort a 10/10. The patient does not recall distinct injury or trauma, but believes he may have injured himself several weeks ago while lifting weights. The patient does not have other medical disease. He has not taken anything for pain today. He previously has been on tramadol with some improvement of symptoms. He has not had urinary difficulty. He does have some worsening pain into his left foot compared to normal. Review of Systems More than 10 systems were reviewed and otherwise negative with the exception of history of present illness. Past Medical/Surgical History Medical Problems: (1) Low back pain (2) No significant medical problems Family History Patient reports no known family medical history. Social History Smoking Status: Former Smoker Smokeless Tobacco Use: No Alcohol Use: none Marital Status: single Housing Status: lives with roommate Occupation Status: [employer] student Physical Exam Vital Signs Date Time Temp Pulse Resp B/P (MAP) Pulse Ox O2 Delivery O2 Flow Rate FiO2 04/25/17 14:35 112 20 117/90 99 Room Air 04/25/17 12:47 100 20 156/90 98 Room Air 04/25/17 11:43 109 20 162/102 99 Room Air 04/25/17 10:53 36.7 81 18 148/101 99 Room Air Physical Exam VITALS: Vitals are noted on the nurse's note and reviewed by myself. Vital signs stable. GENERAL: Well-developed, well-nourished, male who appears in severe discomfort in the emergency department bed. He is restless and is unable to find a comfortable position. HEAD: Normocephalic atraumatic. NECK: Supple without nuchal rigidity. No lymphadenopathy. No thyromegaly. Cervical spine is nontender. HEART: Regular rate and rhythm without murmurs gallops or rubs. LUNGS: Clear to auscultation bilaterally without wheezes, rales or rhonchi. No retractions or accessory muscle use. ABDOMEN: Positive normal bowel sounds x 4. Soft, nontender, without masses or organomegaly. No guarding or rebound tenderness. MUSCULOSKELETAL: Significant lower lumbar and left SI joint tenderness on palpation. Area is exquisitely tender. No saddle paresthesias. Sensation appears intact distally. Positive straight leg raise Medical Decision & Procedures ER Provider Diagnostic Interpretation: MRI OF THE LUMBAR SPINE WITHOUT CONTRAST CLINICAL HISTORY: Low back pain with left sciatica. COMPARISON STUDY: No previous studies for comparison. TECHNIQUE: Utilizing a 1.5 Ananya magnet and dedicated coil, multiplanar, multiecho imaging of the lumbar spine was performed without IV contrast. FINDINGS: For purposes of numbering on this exam, the L5-S1 disc space is assigned to axial image 24 of 27. Alignment of the lumbar spine is anatomic. Vertebral body heights are maintained. The conus terminates at the T12-L1 level. Paravertebral soft tissues are unremarkable. L1-2: The central canal and neural foramen are patent. L2-3: The central canal and neural foramen are patent. L3-4: The central canal and neural foramen are patent. L4-5: There is a large left paracentral disc extrusion that results in marked narrowing of the central canal and left lateral recess. The neural foramen are patent. L5-S1: There is a moderate-sized central/left paracentral disc protrusion that results in mild narrowing of the central canal and moderate narrowing of the left lateral recess. Neural foramen are patent. IMPRESSION: 1. Large left paracentral disc extrusion at L4-L5 that results in marked narrowing of the central canal and left lateral recess. Discussed with [place] at time of dictation. 2. Moderate sized central/left paracentral disc protrusion at L5-S1 that results in moderate narrowing of the left lateral recess and mild narrowing of the central canal. Laboratory Results Test 04/25/17 11:25 Est Creatinine Clear Calc Drug Dose 182.4 ml/min Total Bilirubin 2.2 mg/dl (0.2-1) Aspartate Amino Transf (AST/SGOT) 18 U/L (15-37) Alanine Aminotransferase (ALT/SGPT) 31 U/L (12-78) Alkaline Phosphatase 60 U/L (45-117) Total Protein 8.2 gm/dl (6.4-8.2) Albumin 4.7 gm/dl (3.4-5.0) Globulin 3.5 gm/dl (2.5-4.0) Albumin/Globulin Ratio 1.3 (0.9-2) Medications Administered Medications (Trade) Dose Ordered Sig/Geoff Route Start Time Stop Time Status Last Admin Dose Admin Sodium Chloride 1,000 ml @ 999 mls/hr Q1H1M ONCE IV 04/25/17 11:30 04/25/17 12:30 DC 04/25/17 11:39 999 MLS/HR Dexamethasone Sodium Phosphate (Decadron Inj) 10 mg NOW ONCE IV 04/25/17 11:30 04/25/17 11:31 DC 04/25/17 11:39 10 MG Ketorolac Tromethamine (Toradol Inj) 30 mg NOW STAT IV 04/25/17 11:16 04/25/17 11:19 DC 04/25/17 11:39 30 MG Morphine Sulfate (MoRPHine SULFATE INJ) 4 mg NOW ONCE IV 04/25/17 11:30 04/25/17 11:31 DC 04/25/17 11:39 4 MG Lorazepam (Ativan Inj) 1 mg ONE ONCE IV 04/25/17 11:30 04/25/17 11:31 DC 04/25/17 11:37 1 MG Morphine Sulfate (MoRPHine SULFATE INJ) 4 mg NOW ONCE IV 04/25/17 14:45 04/25/17 14:46 DC 04/25/17 14:51 4 MG ED Course Physical exam and history were performed. Nursing notes, EMR, and Medication List were personally reviewed. Patient appears to have severe left-sided back pain going down his left leg. The patient appears significantly uncomfortable on examination. Review of EMR shows that he has had normal x-rays 2 as well as normal blood work recently. He is a [employer] student and his symptoms are clearly exacerbated by going to physical therapy today. IV access was established and labs were obtained. The patient was hydrated and medicated as above. Because of his history and symptomatology I did elect to perform an MRI of the lumbar spine. The patient's blood work is as above and was reviewed. He does have an elevated white blood cell count 14,000. He does not have a significant anemia, bandemia, or significant electrolyte imbalance. His MRI report was called to me by radiology, as the patient has an extensive L4-L5 disc issue and L5-S1 component. The specifics of the MRI are as above. On reevaluation the patient had significant improvement of his symptoms, and was able to rest in his ER bed comfortably. I discussed the case with the on- call orthospine specialist, Dr. Arredondo, who requested hospitalist admission and consult in the morning. The patient may be a surgical candidate or possibly injection candidate. I then discussed the case with Dr. Palacio, who agreed to evaluate the patient here in the ER. Please see the hospitalist dictation for further patient course, plan, and disposition. The chart was completed utilizing [email or web address] Speech Voice Recognition Software. Grammatical errors, random word insertions, pronoun errors, and incomplete sentences are an occasional consequence of this system due to software limitations, ambient noise, and hardware issues. Any formal questions or concerns about the content, text, or information contained within the body of this dictation should be directly addressed to the provider for clarification. . Medical Decision Differential diagnosis: Etiologies such as musculoskeletal, disc herniation, fracture, aortic disease, metastatic disease, cord compression, discitis, infection, renal colic, gastrointestinal, acute exacerbation of chronic back pain, sciatica, cauda equina, as well as others were entertained. [place] Drug Monitoring Program Search Results: patient reviewed within database Medication Reconcilliation Current Medication List: was personally reviewed by me Blood Pressure Screening Blood pressure disposition: Elevated BP felt to be situational Impression Primary Impression: Back pain with left-sided sciatica Departure Information Dispostion Admitted as an inpatient Condition FAIR Referrals [facility] (PCP) Forms HOME CARE DOCUMENTATION FORM, IMPORTANT VISIT INFORMATION Patient Instructions My [facility]
[2017-04-26 07:20] VITALS: BP 124/80; PULSE 66; TEMP 36.6; O2SAT 95
[2017-04-26 11:26] VITALS: PULSE 102; O2SAT 95
[2017-04-26 11:31] VITALS: BP 120/74; TEMP 36.6
[2017-04-26] MEDS ORDERED: DXM/4 PO (11:51)
[2017-04-26] MEDS ORDERED: HYDR-4330 PO (11:51)
[2017-04-26] MEDS ORDERED: IBUP-1428 PO (11:51)
--- NOTE | 2017-04-26 12:05 | Discharge Instructions ---
Discharge Instructions Date of Service Apr 26, 2017. Admission Reason for Admission: Low Back Pain Discharge Discharge Diagnosis / Problem: lumbar disc herniation Discharge Goals Goal(s): Diagnostic testing, Therapeutic intervention Activity Recommendations Activity Limitations: as noted below (avoid heavy lifting, avoid straining) . Instructions / Follow-Up Instructions / Follow-Up lumbar disc herniation -the discs at L4-5 and L5-1 have a degree of herniation (bulging that pinches the nerves) with the L4-5 region appearing worse than L5-S1 -- this caused nerve root impingement that resulted in the symptoms going down your leg -fortunately you've shown good improvement already simply with steroids ( steroids act to shrink the swollen nerve root, so while the "hole" the nerve has to come out is still too small, the nerve itself is no longer swollen and typically can start to feel better because of reduced pressure) acute management plan: -a course of steroids (decadron, dexamethasone) to help continue to reduce that nerve swelling -- 4mg four times a day for eight doses (get in two more doses today) then 4mg three times a day for 6 doses, then twice a day for 4 doses, then daily for 2 doses (typically the regimen would be written as 4 times a day for two days, then 3 times a day for two days, then 2 times a day for two days, then once a day for two days, but between switching to the oral steroids in the middle of the day, as well as time zone changes, etc - i thought it might be easier to keep it straight by looking at things based on how many doses at a "four time a day pace" etc than how many days at each dosing ) -pain control -- we'll have you use ibuprofen 800mg as your first line for pain - you can take it up to every six hours if needed, but if you're not having much pain, we'd recommend that you hold off on taking it. the main side effect to short term use is that it can upset your stomach, so take it with food. -if you are having pain that is beyond what the ibuprofen can control, we' ve written a prescription for lortab (hydrocodone/acetaminophen) that you can separately take up to every six hours for severe pain -- our main concern with this is that it can be sedating, and since you're having [place], we'd recommend you only take this if the pain is truly severe. the sedating effects do tend to wear off after about 4-6 hours for most people tank terminal gauger management plan: -since you're not showing urgent symptoms of spinal cord compression (these would include numbness in your groin/pelvis, loss of control of bowels or bladder) there is not an urgent need for a surgery -with the symptoms improving rapidly with steroids, it is quite possible that conservative treatment may reign things in enough that you don't require a surgery (or that it can be significantly delayed) --- with patients in the past who had similar disc problems, a strategy that worked well and kept many from needing surgery would go as follows: -steroids to reduce the swelling of the nerve root -pain control acutely -decompression therapy (a specifically directed traction to stretch the area between the vertebrae and "buy the nerves some breathing room" -- every now and then we'd even see people have improvement in the actual disc disease from this, although of course it's not a guarantee -nerve root injections to calm down the nerves further if the above measures are helping but "not enough" -if the above measures were failing, if you were getting flare-ups of the disc disease more often than would be tolerable, or if you were to develop symptoms of spinal cord compression/etc - then it would be time to move to surgery. because of this, we definitely would recommend having a surgeon on your case so that surgical treatment can be expedited if need be, but it's definitely worth at least giving consideration to conservative treatment since a reasonable minority of patients do well with this Current Hospital Diet Patient's current hospital diet: Regular Diet Discharge Diet Recommended Diet: Regular Diet Procedures Procedures Performed: MRI OF THE LUMBAR SPINE WITHOUT CONTRAST CLINICAL HISTORY: Low back pain with left sciatica. COMPARISON STUDY: No previous studies for comparison. TECHNIQUE: Utilizing a 1.5 Ananya magnet and dedicated coil, multiplanar, multiecho imaging of the lumbar spine was performed without IV contrast. FINDINGS: For purposes of numbering on this exam, the L5-S1 disc space is assigned to axial image 24 of 27. Alignment of the lumbar spine is anatomic. Vertebral body heights are maintained. The conus terminates at the T12-L1 level. Paravertebral soft tissues are unremarkable. L1-2: The central canal and neural foramen are patent. L2-3: The central canal and neural foramen are patent. L3-4: The central canal and neural foramen are patent. L4-5: There is a large left paracentral disc extrusion that results in marked narrowing of the central canal and left lateral recess. The neural foramen are patent. L5-S1: There is a moderate-sized central/left paracentral disc protrusion that results in mild narrowing of the central canal and moderate narrowing of the left lateral recess. Neural foramen are patent. IMPRESSION: 1. Large left paracentral disc extrusion at L4-L5 that results in marked narrowing of the central canal and left lateral recess. Discussed with [place] at time of dictation. 2. Moderate sized central/left paracentral disc protrusion at L5-S1 that results in moderate narrowing of the left lateral recess and mild narrowing of the central canal. Electronically signed by: Shashank Lyons M.D. 04/25/2017 1:44 PM Dictated Date/Time: 04/25/2017 1:15 PM Pending Studies Studies pending at discharge: no Medical Emergencies . Who to Call and When: Medical Emergencies: If at any time you feel your situation is an emergency, please call 911 immediately. . Non-Emergent Contact Non-Emergency issues call your: Primary Care Provider, Surgeon . . "Provider Documentation" section prepared by Shukri Merchant. . VTE Core Measure Inpt VTE Proph given/why not?: CLAU [facility]
[2017-04-26 12:12] VITALS: BP 120/74; PULSE 102; TEMP 36.6; O2SAT 95
--- NOTE | 2017-04-26 13:36 | Orthopedic Consultation ---
Orthopedic Consultation Date of Consultation: Apr 26, 2017. Attending Physician: Shukri Merchant D.O. Reason for Consultation: Back and left leg pain History of Present Illness Very pleasant external male with a history of back pain for some time now with acute onset of severe back and left leg pain. Pain describes upon left buttock posterior thigh extending below the knee. At this time sitting and standing seem to exacerbate his symptom complex to get some relief with lying supine. The right lower extremities asymptomatic.. Denies any loss of bowel bladder function. Past Medical/Surgical History Medical Problems: (1) Back pain Status: Acute (2) Back pain with left-sided sciatica Status: Acute (3) Back pain with left-sided sciatica Status: Acute (4) Elevated blood pressure reading Status: Acute (5) Sciatic leg pain Status: Acute (6) Sciatica Status: Acute Family History Patient reports no known family medical history. Social History Smoking Status: Former Smoker Smokeless Tobacco Use: No Alcohol Use: none Marital Status: single Housing Status: lives with roommate Occupation Status: [employer] student Allergies Coded Allergies: No Known Allergies (Unverified , 04/25/17) Home Medications Scheduled Dexamethasone (Decadron), 4 MG PO UD Scheduled PRN Hydrocodone-Acetaminophen (Lortab 5-325 mg), 1 TAB PO QID PRN for Pain Ibuprofen (Motrin), 800 MG PO QID PRN for Pain Physical Exam Date Time Temp Pulse Resp B/P (MAP) Pulse Ox O2 Delivery O2 Flow Rate FiO2 04/26/17 12:12 36.6 102 16 95 Room Air 04/26/17 11:31 36.6 120/74 (89) 04/26/17 11:26 102 16 95 04/26/17 11:19 Room Air 04/26/17 10:00 Room Air 04/26/17 07:20 36.6 66 16 124/80 (95) 95 Room Air 04/26/17 00:00 Room Air 04/25/17 23:32 36.9 105 16 148/97 (114) 96 Room Air 04/25/17 16:50 Room Air 04/25/17 16:50 104 16 136/90 (105) 94 Room Air 04/25/17 16:49 111 16 141/114 96 04/25/17 16:38 36.7 112 20 117/90 99 Room Air 04/25/17 14:35 112 20 117/90 99 Room Air Patient is standing in bleeding about the room the neural but antalgic gait protective left lower extremity. Do not elicit any gross strength deficits at this time. There is no abnormal skin markings across the lumbar spine. Laboratory Results Last 24 Hours Test 04/26/17 06:18 White Blood Count 10.63 K/uL Red Blood Count 4.85 M/uL Hemoglobin 14.2 g/dL Hematocrit 40.5 % Mean Corpuscular Volume 83.5 fL Mean Corpuscular Hemoglobin 29.3 pg Mean Corpuscular Hemoglobin Concent 35.1 g/dl Platelet Count 269 K/uL Mean Platelet Volume 10.5 fL Neutrophils (%) (Auto) 88.5 % Lymphocytes (%) (Auto) 8.8 % Monocytes (%) (Auto) 2.4 % Eosinophils (%) (Auto) 0.0 % Basophils (%) (Auto) 0.0 % Neutrophils # (Auto) 9.41 K/uL Lymphocytes # (Auto) 0.94 K/uL Monocytes # (Auto) 0.25 K/uL Eosinophils # (Auto) 0.00 K/uL Basophils # (Auto) 0.00 K/uL RDW Standard Deviation 39.3 fL RDW Coefficient of Variation 13.0 % Immature Granulocyte % (Auto) 0.3 % Immature Granulocyte # (Auto) 0.03 K/uL Sodium Level 139 mmol/L Potassium Level 4.0 mmol/L Chloride Level 104 mmol/L Carbon Dioxide Level 22 mmol/L Anion Gap 12.0 mmol/L Blood Urea Nitrogen 14 mg/dl Creatinine 0.66 mg/dl Est Creatinine Clear Calc Drug Dose 196.2 ml/min Estimated GFR () > 150.0 Estimated GFR (Non- 140.2 BUN/Creatinine Ratio 21.7 Random Glucose 126 mg/dl Calcium Level 9.5 mg/dl Assessment & Plan Assessment herniated nucleus pulposus L4 5 with left-sided radiculopathy. Plan at this time he demonstrates fairly significant neural encroachment at the 45 level. He is very anxious to return to [place] to have surgical intervention at home. If he were to stay [place] we would recommend a possible lumbar laminotomy at L4 5 on the left.
--- NOTE | 2017-04-26 15:44 | Discharge Summary ---
Discharge Summary Date of Service Apr 26, 2017. (Rebecca Simons PA-C) Discharge Summary Admission Date: Apr 25, 2017 at 16:12 Discharge Date: Apr 26, 2017 Discharge Disposition: Home Principal Diagnosis: L4-L5 Disc Extrusion and L5-S1 Disc Protrusion Problems/Secondary Diagnoses: 1. S/P Lamar Teeth Extraction Procedures: MRI OF THE LUMBAR SPINE WITHOUT CONTRAST FINDINGS: For purposes of numbering on this exam, the L5-S1 disc space is assigned to axial image 24 of 27. Alignment of the lumbar spine is anatomic. Vertebral body heights are maintained. The conus terminates at the T12-L1 level. Paravertebral soft tissues are unremarkable. L1-2: The central canal and neural foramen are patent. L2-3: The central canal and neural foramen are patent. L3-4: The central canal and neural foramen are patent. L4-5: There is a large left paracentral disc extrusion that results in marked narrowing of the central canal and left lateral recess. The neural foramen are patent. L5-S1: There is a moderate-sized central/left paracentral disc protrusion that results in mild narrowing of the central canal and moderate narrowing of the left lateral recess. Neural foramen are patent. IMPRESSION: 1. Large left paracentral disc extrusion at L4-L5 that results in marked narrowing of the central canal and left lateral recess. Discussed with [place] at time of dictation. 2. Moderate sized central/left paracentral disc protrusion at L5-S1 that results in moderate narrowing of the left lateral recess and mild narrowing of the central canal. Consultations: 1. Orthopedic Surgery - Spine (Rebecca Simons PA-C) Medication Reconciliation New Medications: Dexamethasone (Decadron) 4 Mg Tab 4 MG PO UD, #20 TAB 1 po qid x 2 days then 1 po tid x 2 days then 1 po bid x 2 days then 1 po daily x 2 days Hydrocodone-Acetaminophen (Lortab 5-325 mg) 1 Tab Tab 1 TAB PO QID PRN for Pain, #5 Ibuprofen (Motrin) 800 Mg Tab 800 MG PO QID PRN for Pain, #20 TAB Discharge Exam Review of Systems: Constitutional: No fever, No chills Respiratory: No cough, No shortness of breath Cardiovascular: No chest pain Abdomen: No pain, No nausea, No vomiting, No diarrhea, No constipation, No problem reported (denies loss of bowel/bladder function) Genitourinary - Male: No dysuria Neurologic: + weakness (LLE weakness), + numbness/tingling (extending from L buttocks to foot) Hematologic / Lymphatic: No abnormal bleeding/bruising Physical Exam: General Appearance: WD/WN, no apparent distress Eyes: sclerae normal ENT: hearing grossly normal Neck: supple, no JVD, trachea midline Respiratory/Chest: lungs clear, normal breath sounds, no respiratory distress, no accessory muscle use Cardiovascular: regular rate, rhythm, no gallop, no murmur Abdomen / GI: normal bowel sounds, non tender, soft Extremities: no calf tenderness, no pedal edema, + pertinent finding (LLE with minimal tenderness with flexion of toes and ankle) Neurologic/Psychiatric: alert, oriented x 3 Skin: normal color, warm/dry (Rebecca Simons, PAUL) Hospital Course ADMISSION: This is a 21 yo M without significant past medical history who reports to the ER with acute worsening of left lower back pain with radiculopathy down into the left left extending to his foot. He reports the inciting event happened about 1 month ago when he was exercising, but the pain was only limited, so he treated it conservatively. The pain has worsened in the past 2-3 weeks where he has required physical therapy once weekly, and has been taking tylenol, ibuprophen and tramadol for pain relief. On Tuesday night his pain was acutely worse, however the [facility] was closed over the weekend. Today he notes the radiculopathy is at its worst and extends into the dorsal aspect of his foot, he is weaker in his left leg compared to the right as well. He is unable to sit due to pain. The patient reports no issues with bowel or bladder incontinence. Last time he ate was last evening. Pt also notes that his parents would like to see the MRI, and he anticipates getting surgery in [place] if possible. HOSPITAL COURSE: Mr. Chávez was admitted for L paracentral disc extrusion at L4-L5 and L paracentral disc protrusion of L5-S1. Patient received Dexamethasone with some improvement in symptoms. Orthopedic Surgery - Spine was in to see patient. Patient would like to return to [place] for surgical intervention. MRI image and results placed on a disc for patient to take home. He was given instructions on conservative measures to treat his pain and given Rx for Lortab, Ibuprofen, and Dexamethasone taper. He is optimal for D/C home. Total Time Spent: Greater than 30 minutes This includes examination of the patient, discharge planning, medication reconciliation, and communication with other providers. (Rebecca Simons, PA-C) i personally examined pt and verified all barrientos points w Clair Simons PAC feeling better less pain, no cauda equina sx. anxious to get out of hospital - [facility] tonight extensive discussion and then written instructions on acute management and then pathways for ongoing / chronic management both conservative and surgical explained -- pt expressed understanding and appreciation vitals noted nad breathing unlabored no pallor or icterus disc herniation / lumbar radiculopathy -- improved on steroids. stable for home. suspect would do well w conservative care (steroids, decompression, possibly PT and/or injections) - stable for home (Shukri Merchant, D.O.) Discharge Instructions Please refer to the electronic Patient Visit Report (Discharge Instructions) for additional information. (Rebecca Simons, LOKESH-C) Additional Copies To [facility]
== END 2017-04-26 12:41 | disposition home or self-care (01) ==
LOC: EDBD 10:39 → C.EDC 10:41 → C.MSW 16:12 → ENRESERV 16:31
PROVIDERS: ADMIT Internal Medicine; ATTEND Family Medicine
DX: M51.27 Other intervertebral disc displacement, lumbosacral region (principal); M54.16 Radiculopathy, lumbar region; Z87.891 Personal history of nicotine dependence